=== PATIENT | male | born 1955 | race Caucasian/White ===

== ENCOUNTER 2018-07-28 16:07 | Emergency (ER) | payer SELFPAY ==
--- NOTE | 2018-07-29 10:01 | RAD ---
RIGHT HAND 3 VIEWS: Date: 07/28/18 Gauze over the hand obscures some fine bony detail. No gross fracture or opaque foreign body seen. Th ere is evidence of an old chip avulsion from the base of the proximal phalanx of the thumb, lateral s jasvir. No acute bony injuries detected. IMPRESSION: Soft tissue injury, but no acute bony changes. POS: HOME
== END 2018-07-28 18:07 | disposition home or self-care (01) ==
LOC: BURERS 16:07
DX: S61.011A Laceration without foreign body of right thumb without damage to nail, initial encounter (principal); S61.210A Laceration without foreign body of right index finger without damage to nail, initial encounter; S61.212A Laceration without foreign body of right middle finger without damage to nail, initial encounter; S61.214A Laceration without foreign body of right ring finger without damage to nail, initial encounter; Z87.891 Personal history of nicotine dependence; W27.0XXA Contact with workbench tool, initial encounter
CPT/HCPCS: 12005